=== PATIENT | female | born 1980 | race Caucasian/White ===

== ENCOUNTER 2022-05-07 14:40 | Observation (INO) | payer MEDICAID ==
[~2022-05-07] VITALS: Ht 170.2 cm; Wt 78.0 kg
[2022-05-07 15:37] LABS: BILIRUBIN,URINE NEGATIVE (NEGATIVE); CLARITY/URINE CLOUDY (CLEAR); COLOR,URINE YELLOW (YELLOW); GLUCOSE,URINE NEGATIVE (NEGATIVE); KETONES,URINE NEGATIVE (NEGATIVE); LEUKOCYTE ESTERASE ,URINE 3+ (NEGATIVE); NITRITE, URINE POSITIVE (NEGATIVE); PH,URINE 7.5 (5.0-8.0); PROTEIN URINE 1+ (NEGATIVE); UROBILINOGEN,URINE 0.2 (0.2-1.0)
[2022-05-07 15:59] LABS: BLOOD, URINE TRACE (NEGATIVE)
[2022-05-07] MEDS ORDERED: LR 1,000 ML IV SCH (16:15)
[2022-05-07 17:52] LABS: RBC,URINE 0-3 /HPF (0-3); WBC,URINE 20-50 /HPF (0-3)
[2022-05-07 17:53] LABS: BACTERIA,URINE MODERATE /HPF (None Seen); MUCUS,URINE None Seen /LPF (None Seen); URINE AMORPHOUS PHOSPHATES 3+ /HPF (None Seen)
== END 2022-05-07 18:50 | disposition home or self-care (01) ==
LOC: SPU 14:40
PROVIDERS: ADMIT Obstetrics & Gynecology; ATTEND Obstetrics & Gynecology
DX: O62.9 Abnormality of forces of labor, unspecified (principal); Z3A.34 34 weeks gestation of pregnancy
CPT/HCPCS: 81000; 81002; 87086; 87186-TC; 96365; 96366; G0378; J0696; J7060

== ENCOUNTER 2022-06-02 11:16 | Observation (INO) | payer MEDICAID | END 2022-06-02 14:44 | disposition home or self-care (01) | LOC: SPU 11:16 | PROVIDERS: ADMIT Obstetrics & Gynecology; ATTEND Obstetrics & Gynecology | DX: O36.8130 Decreased fetal movements, third trimester, not applicable or unspecified (principal); Z3A.37 37 weeks gestation of pregnancy | CPT/HCPCS: 59025; 81002; 76815; G0378 ==

== ENCOUNTER 2022-06-17 11:00 | Observation (INO) | payer MEDICAID | END 2022-06-17 12:55 | disposition home or self-care (01) | LOC: SPU 11:00 | PROVIDERS: ADMIT Obstetrics & Gynecology; ATTEND Obstetrics & Gynecology | DX: O62.9 Abnormality of forces of labor, unspecified (principal); Z3A.37 37 weeks gestation of pregnancy; Z87.448 Personal history of other diseases of urinary system | CPT/HCPCS: 81002; G0378 ==